=== PATIENT | female | born 1990 | race Caucasian/White ===

== ENCOUNTER 2016-11-07 12:39 | Emergency (ER) | payer OTHER ==
[~2016-11-07] VITALS: Ht 162.6 cm; Wt 130.2 kg
[~2016-11-07 12:39] MED LIST: IRON65TA PO; PREN-385 PO
[2016-11-07 12:52] VITALS: BP 124/93
--- NOTE | 2016-11-07 13:59 | NUR ---
Patient to bed 03.
--- NOTE | 2016-11-07 14:09 | NUR ---
26/F TO ED WITH C/O BILAT HIP PAIN X2 DAYS RADIATING DOWN BILAT LEGS. PT DENIES TRAUMA. PT STATES SHE HAS TROUBLE WALKING. ACHING PAIN 02/24. AAOX4. LUNGS CLEAR BILAT. PEDAL PULSES PRESENT BILAT. HR EVEN AND REGULAR. VSS. NO SIGNS OF DISTRESS.
--- NOTE | 2016-11-07 14:56 | NUR ---
Dr. Villasenor evaluating patient at bedside.
[2016-11-07] MEDS ORDERED: ACETAMINOPHEN EXTRA STRENGTH 500 MG TAB PO ONE (15:00)
[2016-11-07] MEDS ORDERED: IBUPROFEN 600 MG TAB PO ONE (15:00)
[2016-11-07 15:24] LABS: APPEARANCE,URINE CLOUDY (CLEAR); BILIRUBIN,URINE NEGATIVE (NEGATIVE); BLOOD, URINE NEGATIVE (NEGATIVE); COLOR,URINE YELLOW (YELLOW); LEUKOCYTE ESTERASE ,URINE NEGATIVE (NEGATIVE); NITRITE, URINE NEGATIVE (NEGATIVE); PH,URINE 5.5 (5.0-9.0); PROTEIN,URINE NEGATIVE (NEGATIVE); UGLUCOSE NEGATIVE (NEGATIVE); UROBILINOGEN,URINE 0.2 EU/dL (0.2 - 1)
[2016-11-07 15:25] LABS: RBC,URINE 0-5 (RARE) /HPF (0-5); WBC,URINE 0-5 (RARE) /HPF (0-5)
[2016-11-07 15:26] LABS: BACTERIA,URINE 1-9 (FEW) /HPF (None Seen); SQUAMOUS EPITHELIAL CELL,UR 4-10 (MOD) /LPF (0-3 (FEW)); URINE AMORPHOUS URATE 4+ /HPF (None Seen)
--- NOTE | 2016-11-07 16:00 | NUR ---
Patient appears to be resting comfortably in bed. Vital Signs within normal limits. Respirations even and unlabored.
[2016-11-07 17:10] VITALS: BP 125/88
--- NOTE | 2016-11-07 17:10 | NUR ---
Patient discharged with v/s stable. Written and verbal after care instructions given and explained. Patient alert, oriented and verbalized understanding of instructions. Ambulatory with steady gait. All questions addressed prior to discharge. ID band removed. Patient advised to follow up with PMD. Rx of FLEXARIL AND NAPROXEN given. Patient educated on indication of medication including possible reaction and side effects. Opportunity to ask questions provided and answered.
== END 2016-11-07 17:10 | disposition home or self-care (01) ==
LOC: MED 12:39
DX: M25.552 Pain in left hip (principal); M25.551 Pain in right hip; R82.71 Bacteriuria; R03.0 Elevated blood-pressure reading, without diagnosis of hypertension; J45.909 Unspecified asthma, uncomplicated; E66.9 Obesity, unspecified; Z68.42 Body mass index [BMI] 45.0-49.9, adult
CPT/HCPCS: 81001; 99285